=== PATIENT | female | born 1980 | race Caucasian/White ===

== ENCOUNTER 2023-01-04 22:16 | Emergency (ER) | payer MEDICAID ==
[~2023-01-04] VITALS: Ht 172.7 cm; Wt 111.8 kg
[2023-01-04] MEDS ORDERED: ACETAMINOPHEN 325MG TABLET PO ONE (23:30)
[2023-01-05] MEDS ORDERED: MORPHINE SULFATE 10 MG/ML CPJ IV ONE (01:00)
[2023-01-05] MEDS ORDERED: IBUP-2029 MT (02:00)
[2023-01-05 03:29] VITALS: BP 129/74
== END 2023-01-05 03:32 | disposition home or self-care (01) ==
LOC: ER 22:16
DX: M25.551 Pain in right hip (principal); M25.561 Pain in right knee; W18.30XA Fall on same level, unspecified, initial encounter; Y93.89 Activity, other specified; Y92.89 Other specified places as the place of occurrence of the external cause; Y99.8 Other external cause status
CPT/HCPCS: 72170; 73562; 81025; 99284

== ENCOUNTER 2023-06-16 17:49 | Emergency (ER) | payer SELFPAY ==
[~2023-06-16] VITALS: Ht 165.1 cm; Wt 100.0 kg
[~2023-06-16 17:49] MED LIST: IBUP-2029 MT
[2023-06-16 18:02] VITALS: BP 119/92; PULSE 93; RESP 18; TEMP 98.5; O2SAT 97
[2023-06-16] MEDS ORDERED: IBUPROFEN 800MG TABLET PO ONE (19:45)
[2023-06-16] MEDS ORDERED: IBUPROFEN 400MG TABLET PO NR (21:00)
[2023-06-16] MEDS ORDERED: IBUP-2030 MT (21:50)
== END 2023-06-16 22:48 | disposition home or self-care (01) ==
LOC: ER 17:49
DX: M79.661 Pain in right lower leg (principal)
CPT/HCPCS: 93971; 99284